=== PATIENT | female | born 1955 | race Two or more races ===

== ENCOUNTER 2021-04-09 17:25 | Inpatient (IN) | payer MEDICAID, OTHER ==
[~2021-04-09] VITALS: Ht 162.6 cm; Wt 102.0 kg
[2021-04-09] MEDS ORDERED: ACETAMINOPHEN 500 MG TAB PO ONE (20:00)
[2021-04-09] MEDS ORDERED: SODIUM CHLORIDE 0.9% 1,000 ML IV ONE (21:15)
[2021-04-09] MEDS ORDERED: ASPirin 325 MG TAB PO ONE (21:15)
[2021-04-09] MEDS ORDERED: NITROGLYCERIN 0.4 MG SL TAB SL PRN ×2 (21:15→23:30)
[2021-04-09] MEDS ORDERED: MORPHINE SULFATE INJECTION 2 MG/ML SYRG IV PRN ×2 (21:15→23:30)
[2021-04-09 22:41] LABS: Basophils # (auto) 0.1 10 ^3/uL (0-0.2); Basophils % (auto) 0.7 % (0.0-2.0); Eosinophils # (auto) 0.1 10 ^3/uL (0-0.8); Eosinophils % (auto) 0.9 % (0.0-7.0); Hematocrit 44.5 % (36.0-46.0); Hemoglobin 14.6 g/dL (12.2-16.2); Lymphocytes # (auto) 2.6 10 ^3/uL (0.4-5.4); Lymphocytes % (auto) 21.6 % (10.0-50.0); Mean Corpuscular Hemoglobin 27.5 pg (28.0-32.0); Mean Corpuscular Hgb Conc. 32.9 g/dL (32.0-36.0); Mean Corpuscular Volume 83.6 fL (80.0-100.0); Monocytes # (auto) 0.4 10 ^3/uL (0-1.3); Monocytes % (auto) 3.7 % (0.0-12.0); Neutrophils # (auto) 8.8 10 ^3/uL (1.6-8.6); Neutrophils % (auto) 73.1 % (37.0-80.0); Nucleated Red Blood Cells % 0.1 %; Red Blood Cells 5.32 10^6/uL (4.0-5.20); Red Cell Distribution Width 14.2 % (11.8-14.3)
[2021-04-09 23:00] LABS: BUN/Creatinine Ratio 21.3; Calcium 9.9 mg/dL (8.5-10.1)
[2021-04-09 23:09] LABS: Bilirubin, Total 0.2 mg/dL (0.2-1.0); Total Protein 7.4 g/dL (6.4-8.2)
[2021-04-09] MEDS ORDERED: ONDANSETRON HCL 4 MG/2 ML VIAL IV PRN (23:30)
[2021-04-09] MEDS ORDERED: DEXTROSE (50%) 50ML SYRG IV PRN (23:30)
[2021-04-09] MEDS ORDERED: ACETAMINOPHEN 325 MG TAB PO PRN (23:30)
[2021-04-10] VITALS (7 sets, daily range): BP systolic 130–162; BP diastolic 65–92
[2021-04-10] MEDS: HYDROcodone-ACET 5/325MG TAB PO PRN ×4 (00:33→20:22)
[2021-04-10] MEDS: LEVOTHYROXINE SODIUM 88 MCG TAB PO SCH (06:43)
[2021-04-10] MEDS ORDERED: ACCU-CHEK COMFORT CURVE STRIP VI SCH (07:00)
[2021-04-10] MEDS ORDERED: InsuLIN REG 1unit/0.01ml Soln (100units/ml) SC SCH (07:00)
[2021-04-10] MEDS ORDERED: LISI2.5T47 PO (08:04)
[2021-04-10] MEDS ORDERED: LEV75T PO (08:04)
[2021-04-10] MEDS ORDERED: ENOXAPARIN SOD 40 MG/0.4 ML SYRINGE SC SCH (10:00)
[2021-04-10] MEDS: PANTOPRAZOLE 40 MG TAB PO SCH (10:20)
[2021-04-10] MEDS: ASPirin 81 mg TAB PO SCH (10:20)
[2021-04-10] MEDS: LISINOPRIL 20 MG TAB PO SCH (10:20)
[2021-04-10 10:32] LABS: Potassium 3.7 mmol/L (3.5-5.1)
[2021-04-10 10:48] LABS: BUN/Creatinine Ratio 30.4; Calcium 9.2 mg/dL (8.5-10.1)
[2021-04-10] MEDS ORDERED: ATORVASTATIN 20 MG TAB PO SCH (22:00)
[2021-04-11 05:00] VITALS: BP 160/82
[2021-04-11 06:04] LABS: Basophils # (auto) 0 10 ^3/uL (0-0.2); Basophils % (auto) 0.6 % (0.0-2.0); Eosinophils # (auto) 0.1 10 ^3/uL (0-0.8); Eosinophils % (auto) 1.6 % (0.0-7.0); Hematocrit 38.3 % (36.0-46.0); Hemoglobin 13.4 g/dL (12.2-16.2); Lymphocytes # (auto) 1.9 10 ^3/uL (0.4-5.4); Lymphocytes % (auto) 27.5 % (10.0-50.0); Mean Corpuscular Hemoglobin 28.8 pg (28.0-32.0); Mean Corpuscular Hgb Conc. 35.1 g/dL (32.0-36.0); Mean Corpuscular Volume 82.1 fL (80.0-100.0); Monocytes # (auto) 0.5 10 ^3/uL (0-1.3); Neutrophils # (auto) 4.5 10 ^3/uL (1.6-8.6); Neutrophils % (auto) 63.3 % (37.0-80.0); Nucleated Red Blood Cells % 0.1 %; Red Blood Cells 4.66 10^6/uL (4.0-5.20); Red Cell Distribution Width 14.3 % (11.8-14.3)
[2021-04-11 06:38] LABS: BUN/Creatinine Ratio 20.3; Calcium 9.8 mg/dL (8.5-10.1)
[2021-04-11] MEDS: LEVOTHYROXINE SODIUM 88 MCG TAB PO SCH (06:50)
[2021-04-11 09:00] VITALS: BP 162/86
[2021-04-11] MEDS: ASPirin 81 mg TAB PO SCH (09:08)
[2021-04-11] MEDS: PANTOPRAZOLE 40 MG TAB PO SCH (09:09)
[2021-04-11] MEDS: LISINOPRIL 20 MG TAB PO SCH (09:09)
[2021-04-11] MEDS ORDERED: AML5T PO (10:13)
[2021-04-11] MEDS ORDERED: LISI20TA28 PO (10:13)
[2021-04-11] MEDS ORDERED: HYDR12.55 PO (10:13)
[2021-04-11 10:55] VITALS: BP 162/86
[2021-04-11] MEDS: HYDROcodone-ACET 5/325MG TAB PO PRN (11:20)
[2021-04-11 13:00] VITALS: BP 153/95
== END 2021-04-11 16:18 | disposition home or self-care (01) | DRG 203 ==
LOC: EDBD 17:25 → EDSEX 17:25 → ER 17:25 → TELE 23:30 → TELE-CENTR 04-10 02:02
PROVIDERS: ADMIT Nurse Practitioner; ATTEND Internal Medicine
DX: R07.89 Other chest pain (principal); E03.9 Hypothyroidism, unspecified; E11.9 Type 2 diabetes mellitus without complications; Z20.822 Contact with and (suspected) exposure to COVID-19; E66.9 Obesity, unspecified; Z79.899 Other long term (current) drug therapy; V89.2XXA Person injured in unspecified motor-vehicle accident, traffic, initial encounter; Z98.84 Bariatric surgery status; Z68.38 Body mass index [BMI] 38.0-38.9, adult; Y93.89 Activity, other specified; Y92.89 Other specified places as the place of occurrence of the external cause; Y99.8 Other external cause status; I16.1 Hypertensive emergency
CPT/HCPCS: 36415; 70450; 71045; 72125; 73560; 80048; 80053; 82550; 82962; 84443; 84484; 85025; 87426; 93005; 93306; 96360; G0378